=== PATIENT | female | born 1990 | race Caucasian/White ===

== ENCOUNTER 2022-11-14 08:31 | Inpatient (IN) | payer OTHER, SELFPAY ==
[2022-11-14 08:58] VITALS: BP 123/70
--- NOTE | 2022-11-14 09:12 | PM.OBHP.1 ---
OB HPI Date/Time Date of admission: 11/14/22 Date Patient Seen: 11/14/22 Time Patient Seen: 09:13 History of Present Condition Chief complaint: labor : 2 Para: 1 Estimated Date of Delivery: 11/04/22 Estimated Gestational Age (weeks): 41w3d Narrative: Tammy Martinez is a 31 year old female who presents with labor at 41w3d by LMP and confirmed by 12 week ultrasound. Initiated care in [facility] and moved home locally to initiate care with [facility] at 20w3d. Overall uncomplicated care. History of uncomplicated term NSVB in 2019. Received Tdap 08/2022 and Influenza and Covid boosters 06/2022. History of ovarian torsion and resulting oophorectomy in 04/2020. NKDA. Tammy called this morning stating, I'm in labor. She is here now with irregular contractions and bloody show. Contractions last night were mild; this morning around 0500 they woke her up and were approx q 3-5 minutes x 60 seconds prior to coming to hospital. Declines IV. Initially did not want cervical exam; eventually requested one. Desires low intervention and just to let things happen. Anthony will announce sex of the baby at delivery; I want a Lion Travis moment. Indications Indication for induction OB: post dates History of Present care: good care, initiated at week # (12), number of visits (9) and pounds weight gain (43) Dating criteria: LMP confirmed by 1st trimester US Ultrasounds: normal 1st trimester US and normal mid trimester US Obstetrical complications: none Medical complications: none Preadmission Labs Blood type: A (+) positive -: Antibody screen: negative, Cystic fibrosis screen: unknown, GBS status: negative, HBsAG: negative, HIV: negative and RPR/VDLR: negative -: Chlamydia screen: not detected and Gonorrhea screen: not detected -: Rubella: immune and Varicella: immune HCT: 32.8 HCAB: negative PAP: Normal (HPV pos) 1 hr GTT: 87 Prior (ies) History: Uncomplicated and NSVB in 2019. Evaluation Evaluation Baseline heart rate: 135 Variability: Moderate (11-25) monitor accelerations: Present Monitor Decelerations: Absent Contraction Frequency (minutes): 3 Status: Category l Dilation (cm): 8 Effacement (%): 95 Dilation: >/=5 cm Effacement: >/=80% station: 0 Position of cervix: anterior Consistency: soft Aguilar score: 12 PFSH Medical History Ovarian torsion Surgical History H/O oophorectomy Family History (Updated 11/14/22 @ 09:29 by Juany Marquez CNM, JESSICA) Sister Hypothyroid Social History Smoking Status: Never smoker Meds Home Medications and Allergies Allergies Allergy/AdvReac Type Severity Reaction Status Date / Time No Known Drug Allergies Allergy Verified 11/14/22 09:27 Review of Systems Review of Systems Narrative: Negative except for as mentioned in HPI. OB Exam Vital signs Blood Pressure: 123/70 Pulse Rate: 96 Respiratory Rate: 16 Temperature: 96.8 F Assessment and Plan Assessment and Plan Assessment and Plan narrative: 31 year old at 41w3 days Active labor GBS neg Rh pos FHR Cat 1 Admit to L&D Reviewed plan in detail. Comfort measures as desired Intermittent monitoring Anticipate NSVB
[2022-11-14 09:47] VITALS: BP 123/70; PULSE 96; RESP 16; TEMP 36
--- NOTE | 2022-11-14 11:39 | PM.OBPRVD ---
Events: Other (Usual care for low risk with normal labs.) Labor & Delivery Delivery date: 11/14/22 Intrapartal Events: Precipitous Labor < 3 hours Delivery monitor: external FHT (intermittent monitoring after Cat 1 admission FHR) L&D Laceration Description: Periurethral - 1st Degree Quantitative Blood Loss: 217 Anesthesia Type: None Narrative: Tammy is a 31 year old at 41w3d by LMP and confirmed by early ultrasound who was admitted in spontaneous labor. Labored without intervention other than comfort measures. FHR reassuring by doppler during labor. Reported SROM, clear fluid just after telling us she was feeling pushy. With next contraction delivered viable baby girl while standing in the shower into the hands of Anthony with CNM support. [place] cord unwrapped, and then baby handed through Tammy's legs to her waiting arms. Dried Tammy off and she walked to bed. Cord clamped and cut by Anthony when pulsing ceased. Placenta delivered spontaneously, [place]. Minor stretch lacerations noted at introitus and bilaterally tana-urethral but all hemostatic so no repair indicated. QBL 217 mL. Baby girl, Jammie Parish skin to skin with Tammy and being initiated at 30 min of life. Both mom and baby with stable vital signs at this time. Baby 1: Infant gender: Female Presentation: vertex Position: Right Occiput Anterior Placenta delivery description: Spontaneous Cord Vessel Description: 3 Vessels score (1 min): 9 score (5 min): 9 Plan for aftercare: Routine care
[2022-11-14] MEDS: DERMOPLAST SPRAY 20% 60 ML 1 SPRAY TOP (12:24)
[2022-11-14] MEDS: IBUPROFEN 600 MG TABLET PO ×2 (12:24→18:24)
[2022-11-14] MEDS: ACETAMINOPHEN 325 MG TABLET 975 MG PO (14:19)
[2022-11-14 17:10] VITALS: BP 108/62; PULSE 69; RESP 16; TEMP 37
--- NOTE | 2022-11-14 17:40 | PM.OBDS.1 ---
Discharge Providers Provider Date of admission: 11/14/22 08:31 Discharge Date: 11/14/22 Primary care physician: Doctor Shabnam MD Consults: 11/15/22 11:37 Consult to Family Consumer Science [employer] Teacher Routine Comment: Discharge provider: Louisa Andujar CNM Summary Hospital Course Date Patient Seen: 11/14/22 Time Patient Seen: 17:40 Diagnoses: O80 Hospital Course: Day of delivery: 6 hours s/p NSVB of a baby girl with only superficial periurethral lacerations and no repair. Voiding, ambulating and independently. Vaginal bleeding is small without clots. Pain is wel controlled with PO medication. Eager for early discharge to home TER[facility]. is present and supportive. Peripartum Data Infant Delivery Method: Natural Vaginal Laceration Description: Superficial (periurethral and at introitus) Episiotomy description: None Procedures: O80 complications: none [place] 1: Gender: Female Disposition of : home (with agreement to bring in tomorrow for 24 hours screenings) Discharge Diagnosis (1) Encounter for full-term uncomplicated delivery: Start Date: 11/14/22 Start Time: 11:06 Status: Acute Status at Discharge Cognitive/behavioral status at discharge: oriented and calm Functional status at discharge: independent ambulation Overall status at discharge: patient is progressing back to baseline Time Spent with Patient Time attestation: Total time spent providing and/or coordinating discharge services: Exam Vital Signs (past 8 hours): - 11/14/22 09:47 11/14/22 17:10 Temperature 96.8 F L 98.6 F Pulse Rate 96 H 69 Respiratory Rate 16 16 Blood Pressure 123/70 108/62 Other: Fundus firm @ u-2, lochia small without clots Discharge Plan Discharge Plan Patient Disposition: Home Discharge orders & Medications Prescriptions: New ibuprofen 600 mg Tablet 600 mg PO Q6HR PRN (Reason: Pain, Mild (1-3)) 14 Days Qty: 40 0RF Follow up/Referrals: Juany Marquez CNM, MANAGER OF DATA [Advanced Chief Ultrasound Technologist] - (Follow up at 2 weeks and 6 week , as scheduled. Appointments are in your email. ) Diet/Activity/Treatments Diet: Diet as Tolerated and Regular Activity: pelvic rest x 6 weeks Skin/Wound/Dressing Care Report to your healthcare provider any signs of infection, such as:: chills, fever, increased pain, unusual drainage and unusual redness Visit Report/Discharge Packet Instructions: DI for Depression Stand Alone Forms: Discharge: Care, Patient Portal/API, Stroke Signs & Symptoms Discharge Data Primary Care Provider: Miscellaneous,Doctor
== END 2022-11-14 19:39 | disposition home or self-care (01) | DRG 807 ==
PROVIDERS: Admitting Provider Advanced Practice Midwife; Referring Provider Advanced Practice Midwife; Visit Provider Advanced Practice Midwife
DX: O48.0 Post-term pregnancy (principal); Z37.0 Single live birth; Z3A.41 41 weeks gestation of pregnancy; O62.3 Precipitate labor
CPT/HCPCS: 59050; G0379

== ENCOUNTER → 2022-12-26 10:05 | Outpatient (CLI) | payer OTHER, SELFPAY ==
--- NOTE | 2022-12-26 | DI.US.S_ITS ---
PROCEDURE: US PELVIC COMPLETE INDICATIONS: FOLLOW-UP LEFT OVARIAN CYST TECHNIQUE: Real-time scanning was performed of the pelvic organs, with image documentation. Additional endovaginal scanning was necessary due to incomplete visualization of the adnexal and endometrial structures by transabdominal scanning. COMPARISON: [facility], US, US OB > 14 WEEKS COMPLETE ANATOMY, 07/06/2022, 9:43. [facility], US, US OB LIMITED, 05/17/2022, 21:03. [facility], US, US OB LIMITED, 07/26/2022, 13:11. FINDINGS: Uterus: Uterus is retroverted and normal in size at 6.7 x 3.6 x 6.8 cm. The myometrium is homogeneous. The endometrium measures 5.0 mm combined thickness. Cervix appears normal. Ovaries: The right ovary is surgically absent. The left ovary measures 4.6 x 2.0 x 1.9 cm, with a calculated ovarian volume of 10 point cc. There is a 1.7 x 1.2 x 1.0 cm simple cyst in left ovary. Ovaries demonstrate normal vascularity on Doppler ultrasound. Less than 12 follicles can be seen in the left ovary. No adnexal masses are seen. Other: No pathologic free abdominal or pelvic fluid. IMPRESSION: 1. A 1.7 x 1.2 x 1.0 cm simple cyst in left ovary, compatible with a dominant follicle. Otherwise normal left ovary. 2. Absence of right ovary consistent with right oophorectomy. 3. Normal uterus. We strive to produce accurate, complete, and clear reports of imaging services. To assist us in improving patient care, this report was composed using standard report templates and voice recognition software. Therefore, it may contain abnormal punctuation, insertions and/or omissions. Occasional wrong-word or sound-alike substitutions may occur. Though we review the report and make efforts to correct it, we do recommend that the report be read carefully in proper context to recognize any text inaccuracies. Dictated by: Krysta Valadez M.D. on 12/26/2022 at 14:55 Approved by: Krysta Valadez M.D. on 12/26/2022 at 14:58
== END ==
PROVIDERS: Referring Provider Nurse Practitioner Obstetrics & Gynecology; Visit Provider Nurse Practitioner Obstetrics & Gynecology
DX: N83.292 Other ovarian cyst, left side (principal)
CPT/HCPCS: 76830; 76856; 93976

== ENCOUNTER 2023-10-15 12:53 | Emergency (ER) | payer OTHER, SELFPAY ==
[2023-10-15] VITALS (13 sets, daily range): BP systolic 100–126; BP diastolic 65–85; PULSE 80–103; RESP 7–25; TEMP 36.9; O2SAT 91–100; BMI 26.6
--- NOTE | 2023-10-15 13:22 | PC.NURSE ---
Addendum entered by Monica Wray R.N. 10/15/23 16:04: Patient reports improvement in hands and legs and there is objective improvement in hands. Patient states that calf tension and pain has resolved and pain in hands and arms is now down to just hands. Does report headache now, will notify provider. Original Note: Patient reports that yesterday she had episodes of vomiting that lasted from 1507-3607 after waking up with a tummy bug. States that she drank an LMNT salt electrolyte prior to onset of vomiting but drinks them regularly because she does hot yoga and has never had an issue before. Hands are splayed out bilaterally and can make some movement with them. Also has some tension in right neck and states there is tension and soreness in bilateral calves.
[2023-10-15 13:53] LABS: Add Manual Diff / Slide Review NO; Basophils Absolute Auto 0 /uL (0-100); Basophils Percent Auto 0.1 % (0-2); Eosinophils Absolute Auto 0 /uL (0-450); Eosinophils Percent Auto 0.1 % (2-4); Hematocrit 41.3 % (36-46); Hemoglobin 13.8 g/dL (12.0-16.0); Lymphocytes Absolute Auto 600 /uL (1100-4500); Lymphocytes Percent Auto 9.9 % (25-40); Mean Corpuscular HGB Conc 33.5 % (30-36); Mean Corpuscular Hemoglobin 29.8 PG (26-34); Mean Corpuscular Volume 88.9 fL (80-100); Monocytes Absolute Auto 500 /uL (0-900); Monocytes Percent Auto 7.9 % (3-14); Neutrophils Absolute Auto 4900 /uL (1500-7000); Platelet Count 248 X10^3/uL (150-400); Red Blood Cell Count 4.65 X10^6/uL (4.0-5.2); Red Cell Distribution Width 14.2 % (11.6-14.8)
[2023-10-15 13:58] LABS: Alanine Aminotransferase 16 IU/L (<35); Albumin 4.3 g/dL (3.5-5.0); Albumin Globulin Ratio 1.5 (1.0-2.8); Alkaline Phosphatase 47 U/L (38-126); Aspartate Aminotransferase 20 IU/L (14-36); BUN Creatinine Ratio 23.9 (6-22); Bilirubin Total 1.2 mg/dL (0.2-1.3); Blood Urea Nitrogen 17 mg/dL (7-17); Calcium 9.3 mg/dL (8.4-10.2); Carbon Dioxide 23 mmol/L (22-32); Chloride 104 mmol/L (98-107); Estimated Glomerular Filt Rate > 60 mL/min (>60); Globulin 2.9 g/dL (1.7-4.1); Glucose 107 mg/dL (70-100); HEMOLYSIS < 15 (0-50); Lipase 83 U/L (23-300); Magnesium 1.5 mg/dL (1.6-2.3); Potassium 3.4 mmol/L (3.4-5.1); Sodium 137 mmol/L (137-145); Total Protein 7.2 g/dL (6.3-8.2)
[2023-10-15] MEDS: ACETAMINOPHEN 325 MG TABLET 975 MG PO (16:17)
[2023-10-15 17:01] LABS: Bacteria Urine None Seen; Culture Indicated Urine Cult Not Indicated; Mucus Urine 1+ (Negative); RBC Urine 0-1/HPF (0-5/HPF); Squamous Epithelial Cell Urine None Seen (0-5/HPF); Urine Volume 10mL (spun); WBC Urine 0-1/HPF (0-5/HPF)
--- NOTE | 2023-10-15 18:16 | ED_ITS ---
HPI - Neuro Symptoms/Deficit General Chief Complaint: Neuro Symptoms/Deficit Stated Complaint: arms and legs numb, slurred speach, Time Seen by Provider: 10/15/23 18:00 Source: patient Mode of arrival: Wheelchair History of Present Illness HPI Narrative: Patient is a 32-year-old female. Last night had an episode of vomiting. No diarrhea. No recent travel. No recent antibiotics. No one else in the family is having similar symptoms. She has not vomited today. States she woke up today and felt like she could not close her fingers. Was having numbness and tingling to her arms bilateral in her legs bilateral to her feet. At the time of my evaluation she would already received lab work. Has been tolerating oral intake. States she was feeling much better and is essentially asymptomatic. On Anticoagulants: No Related Data Previous Rx's Medication Instructions Recorded ondansetron 4 mg disintegrating 4 mg PO Q6H PRN nausea and 10/15/23 tablet vomiting #10 tabs Allergies Allergy/AdvReac Type Severity Reaction Status Date / Time No Known Drug Allergies Allergy Verified 11/14/22 09:27 Review of Systems Review of Systems Narrative: See HPI Hematologic/Lymphatic On Anticoagulants: No Patient History Medical History Ovarian torsion Surgical History H/O oophorectomy Family History (Updated 11/14/22 @ 09:29 by Juany Marquez CNM, JESSICA) Sister Hypothyroid Social History Smoking Status: Never smoker Smoking Status: Never smoker Substance Use Type: does not use Exam Initial Vital Signs Initial Vital Signs: Vital Signs Pulse Rate 98 H 10/15/23 13:04 Blood Pressure 117/85 10/15/23 13:04 Pulse Oximetry 91 10/15/23 13:04 Const General: cooperative and comfortable HENMT Head: normal to inspection and normocephalic Resp Effort & Inspection: normal respiratory effort Cardio Rate: regular rate Skin General: no rashes or lesions noted Neuro General: patient alert, patient awake, patient oriented x3 and moves all extremities Speech: speech normal Motor: muscle tone normal throughout Sensory Exam: no sensory deficits noted Extrem General: capillary refill normal Course Orders Ordered: ED Orders 10/15/23 16:05 Urine Microscopic Stat Discontinued Medications Acetaminophen (Acetaminophen 325 Mg Tablet) 975 mg PO NOW ONE Stop: 10/15/23 16:14 Last Admin: 10/15/23 16:17 Dose: 975 mg Documented By: DARI Ondansetron HCl (Ondansetron 4 Mg Odt) 4 mg PO NOW PRN PRN Reason: Nausea And Vomiting Ondansetron HCl (Ondansetron 4 Mg/2 Ml Inj) 4 mg IV NOW PRN PRN Reason: Nausea And Vomiting Vital Signs Vital signs: Vital Signs - 8 hr 10/15/23 16:18 10/15/23 16:19 10/15/23 16:19 Pulse Rate 97 H 93 H Respiratory Rate 23 15 Blood Pressure 103/69 10/15/23 16:30 10/15/23 17:00 10/15/23 17:00 Pulse Rate 86 90 Respiratory Rate 18 8 L Blood Pressure 100/67 10/15/23 17:30 10/15/23 18:00 10/15/23 18:00 Pulse Rate 82 83 Respiratory Rate 11 L 20 Blood Pressure 108/65 MDM - Neuro Symptoms/Deficit Lab Data Attestation: I reviewed the patient's lab results. 10/15/23 13:15 10/15/23 13:15 Labs: Lab Results 10/15/23 10/15/23 Range/Units 13:15 16:05 WBC 6.0 (4.5-11.0) X10^3/uL RBC 4.65 (4.0-5.2) X10^6/uL Hgb 13.8 (12.0-16.0) g/dL Hct 41.3 (36-46) % MCV 88.9 (80-100) fL MCH 29.8 (26-34) PG MCHC 33.5 (30-36) % RDW 14.2 (11.6-14.8) % Plt Count 248 (150-400) X10^3/uL Neut % (Auto) 82.0 H (50-75) % Lymph % (Auto) 9.9 L (25-40) % [place] % (Auto) 7.9 (3-14) % Eos % (Auto) 0.1 L (2-4) % Baso % (Auto) 0.1 (0-2) % Neut # (Auto) 4900 (2403-2938) /uL Lymph # (Auto) 600 L (2720-0985) /uL [place] # (Auto) 500 (0-900) /uL Eos # (Auto) 0 (0-450) /uL Baso # (Auto) 0 (0-100) /uL Sodium 137 (137-145) mmol/L Potassium 3.4 (3.4-5.1) mmol/L Chloride 104 (98-107) mmol/L Carbon Dioxide 23 (22-32) mmol/L BUN 17 (7-17) mg/dL Creatinine 0.71 (0.52-1.04) mg/dL Estimated GFR > 60 (>60) mL/min BUN/Creatinine Ratio 23.9 H (6-22) Glucose 107 H (70-100) mg/dL Calcium 9.3 (8.4-10.2) mg/dL Magnesium 1.5 L (1.6-2.3) mg/dL Total Bilirubin 1.2 (0.2-1.3) mg/dL AST 20 (14-36) IU/L ALT 16 (<35) IU/L Alkaline Phosphatase 47 (38-126) U/L Total Protein 7.2 (6.3-8.2) g/dL Albumin 4.3 (3.5-5.0) g/dL Globulin 2.9 (1.7-4.1) g/dL Albumin/Globulin Ratio 1.5 (1.0-2.8) Lipase 83 (23-300) U/L Urine RBC 0-1/hpf (0-5/HPF) Urine WBC 0-1/hpf (0-5/HPF) Ur Squamous Epith Cells None seen (0-5/HPF) Urine Bacteria None seen (None) Urine Mucus 1+ H (Negative) Ur Culture Indicated? Cult not indicated Vol Urine Centrifuged 10ml (spun) Point of Care Testing Test Results Negative Urine Dip Bedside Urine Glucose Negative Bedside Urine Bilirubin + 1 Bedside Urine Ketone +++ 80 Urine Specific [place] 1.015 Bedside Urine Occult Blood - Negative Bedside Urine pH 7.5 Bedside Urine Protein +/- 15 Bedside Urine Urobilinogen - Negative Bedside Urine Nitrite - Negative Bedside Urine Leukocytes - Negative Esterase MDM Narrative Medical decision making narrative: Patient is tolerating oral intake. Her labs are unremarkable. She was feeling much better. No concerning electrolyte abnormalities. Advised that she may have some diarrhea over the next day or so. Will send her home with a prescription for Zofran to take if she needs this medication. No indication for admission to the hospital. No indication for further radiologic studies. She was given return precautions. She expressed understanding and agreement. Discharge Plan Departure Patient Disposition: Home Clinical Impression: Vomiting, Distal paresthesia Instructions: DI for Vomiting -- Adult, DI for Numbness/Tingling Activity Restrictions/Additional Instructions: Would recommend over the next 24-48 hours you were increasing your fluid intake. I would not be surprised if you develop some diarrhea over the next 24 hours. He was the nausea medication as needed. Return to the emergency department for new symptoms. Prescriptions: New ondansetron 4 mg tablet,disintegrating 4 mg PO Q6H PRN (Reason: nausea and vomiting) Qty: 10 0RF Referrals: Miscellaneous,Doctor, [Primary Care Provider] - Stand Alone Forms: Patient Portal/API
== END 2023-10-15 18:29 | disposition home or self-care (01) ==
PROVIDERS: Emergency Medicine; Emergency Provider Emergency Medicine
DX: R11.10 Vomiting, unspecified (principal); R20.2 Paresthesia of skin
CPT/HCPCS: 36415; 80053; 81003; 81015; 81025; 83690; 83735; 85025; 99284

== ENCOUNTER → 2024-04-16 08:28 | Outpatient (CLI) | payer OTHER, SELFPAY ==
--- NOTE | 2024-04-16 08:31 | DI.US.S_ITS ---
PROCEDURE: US OB <= 14 WEEKS FETUS INDICATIONS: DATING AND VIABILITY OUTSIDE/PRIOR DATING DATA: Last menstrual period (LMP): 01/27/2024. LMP-based estimated date of delivery (KIERRA): 11/02/2024. First dating scan (date and location): 04/16/2024. Estimated date of delivery (KIERRA) from first dating scan: 11/06/2024. The calculations are made using the clinical KIERRA of 11/02/2024. TECHNIQUE: Real-time scanning was performed of the fetus and maternal pelvic organs, with image documentation. Endovaginal scanning was also performed to better visualize the fetus and maternal ovaries. COMPARISON: None. FINDINGS: Single living intrauterine is present. A small perigestational hematoma is present, measuring 1.6 x 5.9 x 0.4 centimeter. Embryo: Present, measuring 4 centimeters, corresponding to 10 weeks 6 days. Heart rate: 163 beats per minute Maternal organs: Right ovary surgically absent. Left ovary contains an anechoic, simple cyst measuring 4.5 x 3.7 x 3.2 centimeter. IMPRESSION: Single living intrauterine at 10 weeks 6 days, KIERRA of 11/06/2024. Findings are concordant with clinical dating. Small perigestational hematoma measuring 1.6 x 5.9 x 0.4 centimeter. We strive to produce accurate, complete, and clear reports of imaging services. To assist us in improving patient care, this report was composed using standard report templates and voice recognition software. Therefore, it may contain abnormal punctuation, insertions and/or omissions. Occasional wrong-word or sound-alike substitutions may occur. Though we review the report and make efforts to correct it, we do recommend that the report be read carefully in proper context to recognize any text inaccuracies. Dictated by: Aamn Osorio M.D. on 04/16/2024 at 9:50 Approved by: Aman Osorio M.D. on 04/16/2024 at 9:57
== END ==
LOC: US 08:29
PROVIDERS: Referring Provider Nurse Practitioner Obstetrics & Gynecology; Visit Provider Nurse Practitioner Obstetrics & Gynecology
DX: O26.851 Spotting complicating pregnancy, first trimester (principal); Z3A.10 10 weeks gestation of pregnancy
CPT/HCPCS: 76801; 76817; 93976

== ENCOUNTER → 2024-07-22 07:47 | Outpatient (CLI) | payer OTHER, SELFPAY ==
--- NOTE | 2024-07-22 | DI.US.S_ITS ---
PROCEDURE: US OB >= 14 WEEKS FETUS INDICATIONS: complete anatomy scan OUTSIDE/PRIOR DATING DATA: Last menstrual period (LMP): 01/27/24. LMP-based estimated date of delivery (KIERRA): 11/02/24. First dating scan (date and location): 04/16/24. Estimated date of delivery (KIERRA) from first dating scan: 11/07/19. The calculations are made using the working KIERRA of 11/02/24. TECHNIQUE: Real-time scanning was performed of the fetus, with image documentation and biometric measurements. Endovaginal scanning: COMPARISON: None. FINDINGS: General: A single living intrauterine gestation is present. Presentation: Vertex. Placenta: Placental position is posterior , without previa. Amniotic fluid index: 14.0 cm, normal range is 5-24 cm. Single deepest vertical pocket is 4.0 cm. heart rate: 157 beats per minute. Maternal cervical canal: Closed and 4.3 cm long. Normal lower limit is 2.5 cm. biometrics: Biparietal diameter: 6.3 cm, 25 weeks four days Head circumference: 23.4 cm, 25 weeks three days Abdominal circumference: 20.5 cm, 25 weeks one day Femur length: 4.3 cm, 24 weeks 0 days Clinically estimated gestational age: 25 weeks two days Composite gestational age from present scan: 25 weeks 0 days Estimated weight and percentile: 732 g, 20th percentile Anatomic survey: Neuro: Ventricles are non-dilated at less than 10 mm. Cisterna magna is normal at 3-11 mm. Cerebellum is normal in size and morphology. Nuchal skin fold: Not measured due to fetus outside of gestational age range. Normal at less than 6 mm between 14-21 weeks gestational age. Face: Nose and lips, facial profile are normal. Spine: No evidence for spina bifida. Heart: 4-chambered heart is present, with normal ventricular outflow tracts. Diaphragm: Diaphragm is intact. Stomach: Left-sided stomach is present. Kidneys: No hydronephrosis. Normal is less than 5 mm in 2nd trimester, less than 7 mm in 3rd trimester. Cord: 3-vessel cord has orthotopic insertion. Bladder: Normal in size. Extremities: All 4 extremities identified. IMPRESSION: Single live intrauterine at the 20th percentile for estimated weight. Appropriate, symmetric growth, and normal anatomy. Closed cervix and normal amniotic fluid volume. Posterior placenta without previa. We strive to produce accurate, complete, and clear reports of imaging services. To assist us in improving patient care, this report was composed using standard report templates and voice recognition software. Therefore, it may contain abnormal punctuation, insertions and/or omissions. Occasional wrong-word or sound-alike substitutions may occur. Though we review the report and make efforts to correct it, we do recommend that the report be read carefully in proper context to recognize any text inaccuracies. Dictated by: Zulema Wolf M.D. on 07/22/2024 at 12:51 Approved by: Zulema Wolf M.D. on 07/22/2024 at 12:56
== END ==
PROVIDERS: Referring Provider Nurse Practitioner Obstetrics & Gynecology; Visit Provider Nurse Practitioner Obstetrics & Gynecology
DX: Z3A.25 25 weeks gestation of pregnancy; Z34.92 Encounter for supervision of normal pregnancy, unspecified, second trimester
CPT/HCPCS: 76811

== ENCOUNTER → 2024-10-08 13:25 | Outpatient (ROUT) | payer OTHER, SELFPAY ==
[2024-10-09 14:17] LABS: Strep Grp B PCR NEG for Grp B Strep
== END ==
PROVIDERS: Visit Provider Advanced Practice Midwife
DX: Z34.90 Encounter for supervision of normal pregnancy, unspecified, unspecified trimester (principal); Z36.85 Encounter for antenatal screening for Streptococcus B; Z3A.36 36 weeks gestation of pregnancy
CPT/HCPCS: 87653